=== PATIENT | male | born 1975 | race Caucasian/White ===

== ENCOUNTER 2021-05-30 19:31 | Emergency (ER) | payer OTHER ==
[~2021-05-30] VITALS: Ht 172.7 cm; Wt 104.3 kg
[2021-05-30] MEDS ORDERED: CIPRO (19:52)
[2021-05-30] MEDS ORDERED: [UNRECOGNIZED DRUG - OTHER] (19:54)
== END 2021-05-30 21:50 | disposition home or self-care (01) ==
LOC: ER 19:31
DX: L03.116 Cellulitis of left lower limb (principal)

== ENCOUNTER 2021-06-02 11:39 | Inpatient (IN) | payer OTHER ==
[~2021-06-02] VITALS: Ht 172.7 cm; Wt 104.3 kg
[~2021-06-02 11:39] MED LIST: CIPRO; [UNRECOGNIZED DRUG - OTHER]
[2021-06-08] MEDS ORDERED: BACTRIM DS TAB1 EACH PO (11:19)
== END 2021-06-08 13:02 | disposition home or self-care (01) | DRG 603 ==
LOC: ER 11:39 → MEDJ 19:41 → SEC-K 19:41 → MEDJ 06-03 09:16 → SEC-K 06-03 11:06 → MEDJ 06-04 11:40
PROVIDERS: ADMIT Internal Medicine; ATTEND Internal Medicine
PROC: B43GZZZ Magnetic Resonance Imaging (MRI) of Left Lower Extremity Arteries (ICD-10-PCS; principal; 2021-06-03)
DX: L03.032 Cellulitis of left toe (principal); B95.62 Methicillin resistant Staphylococcus aureus infection as the cause of diseases classified elsewhere; Z20.822 Contact with and (suspected) exposure to COVID-19

== ENCOUNTER 2022-02-04 10:24 | Emergency (ER) | payer OTHER ==
[~2022-02-04] VITALS: Ht 170.2 cm; Wt 106.6 kg
[~2022-02-04 10:24] MED LIST changes: +BACTRIM DS TAB1 EACH PO
== END 2022-02-04 12:17 | disposition home or self-care (01) ==
LOC: ER 10:24
DX: L02.416 Cutaneous abscess of left lower limb (principal); L03.116 Cellulitis of left lower limb; B95.7 Other staphylococcus as the cause of diseases classified elsewhere; Z16.30 Resistance to unspecified antimicrobial drugs